=== PATIENT | male | born 1965 | race Caucasian/White ===

== ENCOUNTER 2023-02-25 14:58 | Emergency (ER) | payer SELFPAY, OTHER ==
[2023-02-25 14:59] VITALS: BP 145/96; PULSE 77; RESP 16; TEMP 36.6; O2SAT 98; BMI 31.1
--- NOTE | 2023-02-25 15:23 | EKG12_ITS ---
Test Reason : DIZZINESS Blood Pressure : / mmHG Vent. Rate : 066 BPM Atrial Rate : 066 BPM P-R Int : 176 ms QRS Dur : 094 ms QT Int : 404 ms P-R-T Axes : 038 053 027 degrees QTc Int : 423 ms Normal sinus rhythm Normal ECG Confirmed by CLIFFORD ONTIVEROS, HOMA ([id number]), market editor QUE NOEL ([id number]) on 02/26/2023 10:49:55 AM Referred By: JOSE MANUEL Confirmed By:HOMA HORTON MD
--- NOTE | 2023-02-25 15:24 | EDS_ITS ---
HPI History of Present Illness Chief Complaint: Syncope Narrative Narrative: 57-year-old male who denies significant past medical history presents with near syncope that he has had since 11:00 this morning. He is also been more lightheaded and somewhat dizzy intermittently. He states that around 11:00 he was using a large stool as leverage to try and loosen a bolt. He became lightheaded and states he almost passed out. Additionally, he became nauseated but did not vomit. He and his are concerned because his symptoms have been intermittent and somewhat persistent over the last 4 hours. He denies any chest pain or back pain, no other symptoms. He does not take daily medications. His only significant past medical history is that he has a heart murmur from rheumatic fever as a child that was diagnosed when he was in his 20s. [facility] Medical History (Updated 02/25/23 @ 17:29 by Brandon Urena MD) History of food poisoning History of pneumococcal pneumonia Home Medications NK 05/25/18 [History Last Taken Unknown] Allergy/AdvReac Type Severity Reaction Status Date / Time No Known Allergies Allergy Verified 02/25/23 15:02 Social History Smoking Status: Never smoker alcohol intake: never ROS ROS ED ROS Narrative Constitutional: No fever, no chills. HEENT: No sore throat. No neck pain. No loss of vision. No rhinorrhea. Cardiovascular: No chest pain. No palpitations. No pedal edema. Respiratory: No cough, no shortness of breath. Abdominal: No abdominal pain. No nausea. No vomiting. Genitourinary: No dysuria. No hematuria. Musculoskeletal: No myalgias. No arthralgias. Neurologic: No headaches. Positive lightheadedness and positive dizziness. Reported near syncope. Skin: No rash. No change in color. Psychiatric: No depression. No anxiety. EXAM Physical Exam Narrative Exam Narrative: Afebrile. Vital signs noted. HEENT: Normocephalic. Atraumatic. PERRL, EOMI. Neck soft and supple. No point tenderness or step off. Cardiovascular: Regular rate and rhythm. Slight holosystolic murmur, no rubs, or gallops appreciated. Respiratory: No tachypnea. Lungs clear to auscultation bilaterally. Gastrointestinal: Abdomen soft, nontender, with normoactive bowel sounds. No rebound or guarding. Neurological: Awake. Alert. Oriented. Nonfocal, nonlateralizing. Skin: No rash. Normal color. No pallor. Musculoskeletal: No pedal edema. Full range of motion extremities. Const Vital Signs: 02/25/23 14:59 02/25/23 15:41 02/25/23 15:43 Temperature 97.8 F Temperature Source Temporal Pulse Rate 77 Respiratory Rate 16 Respiratory Effort Normal Non-Labored Blood Pressure 145/96 H Blood Pressure Mean 112 Pulse Ox 98 97 Oxygen Delivery Method Room Air Room Air 02/25/23 16:00 02/25/23 17:00 02/25/23 18:51 Temperature Temperature Source Pulse Rate 70 63 71 Respiratory Rate 14 15 13 Respiratory Effort Blood Pressure 135/100 H 140/99 H 145/93 H Blood Pressure Mean 111 112 110 Pulse Ox 94 95 97 Oxygen Delivery Method Room Air Room Air Room Air MDM MDM MDM Narrative Medical decision making narrative: In the differential for his near syncope and dizziness is intravascular volume depletion versus dehydration. Additionally, could have acute coronary syndrome. I have low concern for pulmonary embolism. I additionally have low concern for stroke. I currently do not feel that CT imaging of the brain is indicated as he is more lightheaded than anything else. He denies any true exacerbating or alleviating factors. EKG was obtained and interpreted by myself independently as normal sinus rhythm at 66 bpm without ectopy or acute ST changes. No STEMI. I reviewed his laboratory work and he has normal white count of 7.8, hemoglobin normal at 15.0, hematocrit 45.1, platelet count normal at 187. His electrolyte panel is grossly unremarkable with a normal sodium of 137, potassium 4.1, chloride normal at 103, BUN normal at 13 with creatinine 1.12. Glucose is appropriately elevated at 101 with a normal anion gap of 8. Initial high- sensitivity troponin is 6. Repeat at 2 hours is also 6 for negative delta troponin. At this point in time I feel he can be discharged safely home with follow-up. I had reviewed and interpreted his chest x-ray which shows no evidence of an acute process, no pneumonia or pneumothorax. I do not feel antibiotics are indicated. His was concerned about his urine, so analysis was sent and reviewed and there is no evidence of an acute infection, no ketones. I do feel that he probably had more of a vasovagal near syncopal episode after straining. He has slightly elevated blood pressure but is feeling improved after a bolus of IV fluids so he may have had intravascular volume depletion. I do not feel that he requires any antihypertensive but I urged him to follow-up with his primary care provider. I do not feel he requires admission or observation and that he can be discharged to follow-up. Return instructions to the emergency department were reviewed. Disposition is discharged home in stable condition. History & Record Review Discussion w/independent historian: Patient and Family Additional record(s) reviewed:: No prior records Lab Data Attestation: I reviewed the patient's lab results. Labs: Laboratory Results - last 24 hr 02/25/23 02/25/23 02/25/23 15:35 15:40 17:37 WBC 7.8 RBC 4.93 Hgb 15.0 Hct 45.1 MCV 91.5 MCH 30.4 MCHC 33.3 RDW Std Deviation 45.7 H RDW Coeff of Daily 13.4 Plt Count 187 MPV 10.3 Immature Gran % (Auto) 0.400 Neut % (Auto) 78.3 H Lymph % (Auto) 10.9 L [place] % (Auto) 7.6 Eos % (Auto) 2.3 Baso % (Auto) 0.5 Absolute Neuts (auto) 6.1 Absolute Lymphs (auto) 0.85 Nucleated RBC % 0 Sodium 137 Potassium 4.1 Chloride 103 Carbon Dioxide 26.0 Anion Gap 8 BUN 13 Creatinine 1.12 Estim Creat Clear Calc 68.85 Est GFR (MDRD) Af Amer 87 Est GFR (MDRD) Non-Af 72 BUN/Creatinine Ratio 11.6 Glucose 101 Calcium 9.0 Troponin I High Sens 6 6 Urine Color Yellow Urine Clarity Clear Urine pH 8.0 Ur Specific [place] 1.015 Urine Protein Negative Urine Glucose (UA) Normal Urine Ketones Negative Urine Occult Blood Negative Urine Nitrite Negative Urine Bilirubin Negative Urine Urobilinogen Normal Ur Leukocyte Esterase Negative Urine RBC 0 SEEN Urine WBC 0 SEEN Ur Squamous Epith Cells 0 SEEN Urine Bacteria 0 SEEN Urine Mucus 0 SEEN Radiography Diagnostic Testing: Clinical Impression(s) from Imaging Studies Chest X-Ray 02/25/23 15:45 IMPRESSION: Normal x-ray examination of the chest. Electronically Signed: Jony Martinez MD at 16:01 EST , Discharge Plan Triage Chief Complaint: Syncope ED Provider: Brandon Urena Dx/Rx/DC Orders Clinical Impression: Dizziness, Lightheaded, Near syncope Instructions: ED Dizziness, Uncertain Cause, ED Near-Fainting, Uncertain Cause Prescriptions: No Action NK Primary Care Provider: Salty Feldman Referrals: Salty Fedlman MD [Primary Care Provider] - 3-5 Days if not improving Disposition Disposition: Home, Self Care
--- NOTE | 2023-02-25 15:38 | NURSING ---
NO OLD EKGS
[2023-02-25 15:41] VITALS: O2SAT 97
--- NOTE | 2023-02-25 15:45 | RAD_ITS ---
STUDY: X-RAY CHEST REASON FOR EXAM: Male, 57 years old. Chest pain TECHNIQUE: Single AP portable view of the chest. COMPARISON: None. FINDINGS: EKG electrodes are seen. The lungs are clear and expanded. There is no demonstrated pleural abnormality. Normal size heart. Normal mediastinum and thelma. Normal visualized pulmonary arteries. Normal visualized aortic arch and descending thoracic aorta. Normal visualized thoracic spine. Normal visualized ribs, clavicles, and shoulders. There is no demonstrated abnormality of the visualized soft tissue structures of the upper abdomen. RAD/Chest 1 View (Portable) IMPRESSION: Normal x-ray examination of the chest. Electronically Signed: Jony Martinez MD at 16:01 [facility] ,
[2023-02-25] MEDS: 0.9% Normal Saline (1000mL) 1,000 ML 1000 ML IV (15:53)
[2023-02-25 16:00] VITALS: BP 135/100; PULSE 70; RESP 14; O2SAT 94
[2023-02-25 16:00] LABS: Absolute Lymphocyte Count 0.85 X10^3/uL (0.83-4.51); Absolute Neutrophil Count 6.1 X10^3/uL (2.0-7.7); Basophil# 0.04 X10^3/uL; Basophil% 0.5 % (0-1); Eosinophil# 0.18 X10^3/uL; Eosinophils% 2.3 % (0-5); Hematocrit 45.1 % (40-54); Lymphocyte # 0.85 X10^3/ul (0.83-4.51); Lymphocyte % 10.9 % (19-41); Mean Corp Hgb Conc 33.3 g/dL (32-36); Mean Corpuscular Hgb 30.4 pg (27.0-32.0); Mean Corpuscular Volume 91.5 fL (80-94); Mean Platelet Vol. 10.3 fl (6.2-12.0); Monocyte# 0.59 X10^3/uL; Monocyte% 7.6 % (0-10); NRBC Flagged by Analyzer 0 % (0-5); Neutrophil # 6.12 X10^3/uL (2.7-7.7); Neutrophil % 78.3 % (47-70); Platelet Count 187 K/mm3 (150-450); RBC Distribution Width CV 13.4 % (11.6-14.6); RBC Distribution Width SD 45.7 fl (35.1-43.9); Red Blood Count 4.93 M/mm3 (4.6-6.2); White Blood Count 7.8 K/mm3 (4.4-11.0)
[2023-02-25 16:24] LABS: Anion Gap 8 (5-15); BUN 13 mg/dL (7-18); BUN/Creat Ratio 11.6 RATIO (10-20); Chloride 103 mmol/L (98-107); Creatinine, Serum 1.12 mg/dL (0.70-1.30); EST Glomerular Filtration Rate 72 mL/min (>60); Est Glom Filt Rate - Afr Amer 87 mL/min (>60); Estimated Creatinine Clearance 68.85 ml/min; Glucose 101 mg/dL (74-106); Potassium 4.1 mmol/L (3.5-5.1); Sodium Level 137 mmol/L (136-145); Troponin-I HS (w/2H Reflex) 6 pg/mL (3.0-78.0)
[2023-02-25 17:00] VITALS: BP 140/99; PULSE 63; RESP 15; O2SAT 95
[2023-02-25 17:46] LABS: Reflex Troponin-HS? (from REC) Y
[2023-02-25 18:13] LABS: Troponin-I HS 6 pg/mL (3.0-78.0)
[2023-02-25 18:30] LABS: Bacteria 0 SEEN /hpf (None Seen); Mucous, Urine 0 SEEN /hpf (<or=2+); Red Blood Cells-Urine 0 SEEN /hpf (0-5); Squamous Epithelial Cells - UA 0 SEEN /hpf (0-5); White Blood Cells 0 SEEN /hpf (0-5)
[2023-02-25 18:35] LABS: Color, Urine Yellow (Yellow); Glucose, Dipstick Normal (Normal); Ketone-Dipstick Negative (Negative); Leukocyte Esterase-Dipstick Negative /ul (Negative); Nitrite-Dipstick Negative (Negative); Occult Blood-Urine Negative /ul (Negative); Protein-Dipstick Negative (Negative); Specific Gravity, Urine 1.015 (1.002-1.030); Urine Bilirubin Dipstick Negative (Negative); Urine Clarity Clear (Clear); Urine Urobilinogen Normal (Normal)
[2023-02-25 18:51] VITALS: BP 145/93; PULSE 71; RESP 13; O2SAT 97
== END 2023-02-25 19:03 | disposition home or self-care (01) ==
PROVIDERS: Emergency Provider Emergency Medicine; PCP Family Medicine; Visit Provider Emergency Medicine
DX: R55 Syncope and collapse (principal); R42 Dizziness and giddiness
CPT/HCPCS: 71045; 80048; 81001; 84484; 85025; 93005; 96360; 96361; 99284; J7030; A4216